=== PATIENT | male | born 1955 | race Caucasian/White ===

== ENCOUNTER 2019-02-19 19:26 | Inpatient (IN) | payer MEDICARE ==
--- NOTE | 2019-02-18 22:30 | NUR ---
PT ARRIVED ON UNIT VIA WHEELCHAIR, ESCORTED BY ER STAFF. UPON ARRIVAL PT BEGAN REQUESTING HIS ANTI REJECTION MEDS...STATES HE NEEDS THEM PROMPTLY AT 2230 AT NIGHT. PT BROUGHT HIS OWN MEDS FOR TONIGHTS, AND I APPROVED HIM TO TAKE NOW IT WOULD TAKE TIME TO GET ORDERS AND MEDS. HE WILL TALK TO MD IN AM ABOUT HOME MEDS.
[~2019-02-19] VITALS: Ht 170.2 cm; Wt 76.7 kg
--- NOTE | ~2019-02-19 | EC ---
PATIENT:KARSTEN KUHN DATE OF SERVICE: 02/19/19 SEX: M MEDICAL RECORD: [id number] DATE OF : [birth year] LOCATION:D.MS [address]222 AGE OF PATIENT: 64 ADMISSION DATE: 02/19/19 REFERRING PHYSICIAN: INTERPRETING PHYSICIAN: LILA MOSELEY MD ECHOCARDIOGRAM REPORT ECHO CHARGES 4 ECHO COMPLETE Date: 02/21/19 CLINICAL DIAGNOSIS: DYSPNEA HX LIVER TRANSPLANT ECHOCARDIOGRAPHIC MEASUREMENTS (adult normal given) AC root (d.<3.7cm) 3.7 cm LV Septum d (<1.2 cm> 1.7 cm Valve Excursion 2.0 cm LV Septum (systole) 1.8 cm Left Atria (s.<4.0cm> 3.2 cm LVPW d(<1.2cm) 1.7 cm RV (d.<2.3cm) 3.0 cm LVPW (sytole) 1.9 cm LV diastole(<5.6CM) 4.5 cm MV E-F(>70mm/sec) cm LV systole 3.3 cm LVOT Diameter 1.8 cm MV exc.(>10mm) cm Est.ejection fraction (50-75%) % DOPPLER: LVIT cm/sec A 89.0 cm/sec E 64.0 cm/sec LA cm/sec RVSP 17 mmHg LVOT 110 cm/sec AOP1/2T m/s Asc. Ao 132 cm/sec RVOT cm/sec RA cm/sec PA cm/sec AV Gradient Peak 6.95 mmHg AV Mean 3.70 mmHg AV Area 1.9 cm MV Gradient Peak 4.45 mmHg MV Mean 2.22 mmHg MV Area cm COMMENTS: Financial Planning Assistant: Genesis PATTERSON [employer] Sales Representative: 2 Dr. Parks TAPE# PACS Pericardial Effusion N DATE OF SERVICE: 02/21/2019 ECHOCARDIOGRAM FINDINGS: 1. Left ventricular chamber size is within normal limits. Left ventricular systolic function is normal. Overall ejection fraction estimated at 55% to 60%. 2. Left atrium, right atrium, and right ventricle chamber sizes are within normal limits. 3. Valvular structures have normal structure and motion. ECHOCARDIOGRAM REPORT [id number] KARSTEN KUHN 4. Doppler interrogation reveals no significant valvular insufficiency or stenosis and pulmonary systolic pressure is normal estimated at 17 mmHg. 5. No evidence of pericardial effusion or left ventricular thrombus. TRANSINT:[id number] Voice Confirmation ID: [id number] DOCUMENT ID: [id number] LILA MOSELEY MD CC: [id number] DICTATION DATE: 02/21/19 1249 CONSUMER LOAN PROCESSOR: 02/21/191948 DIS IN 02/21/19 [facility] [address] [id number]
[2019-02-19] MEDS ORDERED: PROGRAF0.5 M1 PO (19:37)
[2019-02-19] MEDS ORDERED: BP MEDS (19:37)
--- NOTE | 2019-02-19 19:54 | NUR ---
RT AT BEDSIDE.
[2019-02-19 20:00] VITALS: BP 158/97
[2019-02-19 20:07] LABS: BASOPHILS 0.5 % (0-2); EOSINOPHILS 1.2 % (0-7); HEMATOCRIT 48.6 % (42.0-54.0); HEMOGLOBIN 16.5 g/dL (13.5-17.5); IMMATURE GRANULOCYTES 0.2 % (0-5); LYMPHOCYTES 18.5 % (15-50); MCH 32.7 pg (26.0-34.0); MCV 96.2 fL (80.0-100.0); MEAN PLATELET VOLUME 9.3 fL (7.4-10.4); MONOCYTES 15.1 % (2-11); NEUTROPHILS 64.5 % (40-80); PLATELET COUNT 211 10x3/uL (130-400); RBC 5.05 10x6/uL (4.20-6.10); RDW 12.3 % (11.5-14.5); WBC 15.3 10x3/uL (4.8-10.8)
[2019-02-19 20:17] LABS: CALC OSMOLALITY 272 mosm/kg (275-300); CALCIUM 8.9 mg/dL (8.5-10.1); CARBON DIOXIDE 27.5 mmol/L (21.0-32.0); CHLORIDE - SERUM 99 mmol/L (98-107); CREATININE - SERUM 1.2 mg/dL (0.6-1.3); GLUCOSE 93 mg/dL (74-106); POTASSIUM - SERUM 3.9 mmol/L (3.5-5.1); SODIUM 135 mmol/L (136-145); UREA NITROGEN 20 mg/dL (7-18); eGFR NON AFRICAN AMERICAN 64 mL/min (90-120)
[2019-02-19 20:20] LABS: APTT 35.6 SECONDS (22.8-39.4); INR 1.19 (0.85-1.17); PROTIME 14.6 SECONDS (11.6-15.0)
[2019-02-19 20:33] LABS: ALBUMIN 3.8 g/dL (3.4-5.0); ALKALINE PHOSPHATASE 68 U/L (46-116); ALT (SGPT) 33 U/L (10-68); BILIRUBIN - TOTAL 0.71 mg/dL (0.2-1.3); CKMB 2.2 U/L (0.0-3.6); CREATINE KINASE 619 UL (21-232); PRO BNP 77 pg/mL (0-125); PROTEIN - SERUM 7.8 g/dL (6.4-8.2); TROPONIN-I < 0.017 ng/mL (0.000-0.060)
--- NOTE | 2019-02-19 20:45 | NUR ---
PT REPORTS DECREASE IN SOB AFTER RECEIVING UPDRAFT.
[2019-02-19 21:00] VITALS: BP 165/98
--- NOTE | 2019-02-19 21:33 | NUR ---
PT TAKEN TO CT
--- NOTE | 2019-02-19 21:44 | NUR ---
PT RETURNED TO ED VIA WC FROM CT.
[2019-02-19] MEDS ORDERED: COREG25 MG PO (22:12)
[2019-02-19] MEDS ORDERED: LEVOTHYROXINE50 MCG PO (22:13)
[2019-02-19] MEDS ORDERED: FLOMAX0.4 MG PO (22:13)
[2019-02-19] MEDS ORDERED: OMEPRAZOLE40 MG PO (22:14)
[2019-02-19] MEDS ORDERED: TRAZODONE HCL150 MG PO (22:14)
[2019-02-19] MEDS ORDERED: FLUTICASONE PRO16 GM NASAL (22:15)
--- NOTE | 2019-02-19 22:30 | NUR ---
PT ARRIVED ON UNIT VIA WHEELCHAIR, ESCORTED BY ER NURSE. PT STARTED REQUESTING HIS ANTI REJECTION MEDS UPON ARRIVAL....ONLY ORDER WAS FOR PROGRAF AND THAT HAS BEEN ORDERED. PT BROUGHT HIS OWN NIGHT TIME MEDS AND REQUESTED IF HE COULD JUST TAKE THOSE....AGREED TO LET HIM TAKE TONIGHT AND SPEAK TO MD IN AM.
[2019-02-19 22:34] VITALS: BP 155/126; BMI 25.6
--- NOTE | 2019-02-19 22:59 | NUR ---
PT REFUSED TELEMETRY...STATES THAT HE DOSN'T HAVE CARDIAC ISSUES AND HE DOSN'T NEED THE MONITOR. RETURNED TO MED 2
[2019-02-20] VITALS: BP 142/85
--- NOTE | 2019-02-20 01:14 | NUR ---
PAGED ANNAMARIE STEWART,ACCESS CONSULTANT TO REQUEST COUGH MED FOR PT. RECEIVED ORDER TO START TESSALON PEARLE 100 [address] PO AND [address] ORDER FOR PULMONARY CONSULT.
[2019-02-20 04:00] VITALS: BP 131/76
--- NOTE | 2019-02-20 07:00 | NUR ---
SITTING UP IN BED. HE IS WITHOUT DISTRESS.CALL LIGHT IN REACH
--- NOTE | 2019-02-20 08:00 | NUR ---
ASSESSMENT PER FLOW SHEET. PT IS WITHOUT DISTRESS.MONITOR FOR NEEDS
[2019-02-20 08:11] VITALS: BP 150/87
[2019-02-20] MEDS ORDERED: CALCIUM 250+D T1 TAB PO (11:39)
[2019-02-20] MEDS ORDERED: VITAMIN D31000 UNI2 PO (11:40)
[2019-02-20] MEDS ORDERED: FISH OIL 1,0001 CA1 PO (11:41)
[2019-02-20] MEDS ORDERED: MAG-OX 400 MG400 MG PO (11:41)
[2019-02-20 12:37] VITALS: BP 146/80
[2019-02-20 14:30] LABS: CKMB 2.4 U/L (0.0-3.6); CREATINE KINASE 535 UL (21-232); MAGNESIUM - SERUM 1.9 mg/dL (1.8-2.4)
[2019-02-20 14:31] LABS: TROPONIN-I < 0.017 ng/mL (0.000-0.060)
--- NOTE | 2019-02-20 14:37 | NUR ---
MONITOR ORDERED.PT REFUSED LAST NIGHT,BUT SAYS HE WILL WEAR IT TODAY. DAILY WEIGHT, SEE FLOW SHEET.
[2019-02-20 16:33] VITALS: BP 143/84
--- NOTE | 2019-02-20 18:51 | NUR ---
HAS DONE WELL TODAY. HE IS WITHOUT SHORTNESS OF BREATH AT PRESENT.IS AT BEDSIDE AND INSTRUCTED,2000ML RETURNED DEMONSTRATION.SCD'S IN PLACE.CONT PLAN OF CARE
--- NOTE | 2019-02-20 19:15 | NUR ---
PATIENT SITTING UP IN BED. IV TO L FA SL, NO REDNESS OR SWELLING. ROOM AIR. PATIENT STATES HE HAS NO NEEDS AT THIS TIME. TOLD PATIENT I WOULD BE BACK IN A FEW MINUTES TO CHECK ON HIM AND ASSESS. BED RAILS X2. CALLL LIGHT AND BEDSIDE TABLE WITHIN REACH.
[2019-02-20 19:59] LABS: CKMB 2.2 U/L (0.0-3.6); CREATINE KINASE 504 UL (21-232)
[2019-02-20 20:01] LABS: TROPONIN-I < 0.017 ng/mL (0.000-0.060)
[2019-02-20 20:35] VITALS: BP 147/88
[2019-02-21 01:20] VITALS: BP 150/77
[2019-02-21 02:46] LABS: CKMB 2.1 U/L (0.0-3.6); CREATINE KINASE 425 UL (21-232)
[2019-02-21 02:47] LABS: TROPONIN-I < 0.017 ng/mL (0.000-0.060)
[2019-02-21 05:22] LABS: BASOPHILS 0.1 % (0-2); EOSINOPHILS 0 % (0-7); HEMATOCRIT 44.5 % (42.0-54.0); HEMOGLOBIN 15.1 g/dL (13.5-17.5); IMMATURE GRANULOCYTES 0.3 % (0-5); LYMPHOCYTES 7.6 % (15-50); MCH 32.6 pg (26.0-34.0); MCHC 33.9 g/dL (31.0-37.0); MCV 96.1 fL (80.0-100.0); MEAN PLATELET VOLUME 9.5 fL (7.4-10.4); PLATELET COUNT 217 10x3/uL (130-400); RBC 4.63 10x6/uL (4.20-6.10); RDW 12.3 % (11.5-14.5); WBC 18.4 10x3/uL (4.8-10.8)
[2019-02-21 05:43] LABS: ALBUMIN 3.3 g/dL (3.4-5.0); ANION GAP 11.1 mmol/L (8-16); BILIRUBIN - TOTAL 0.42 mg/dL (0.2-1.3); CARBON DIOXIDE 27.7 mmol/L (21.0-32.0); CREATININE - SERUM 1.1 mg/dL (0.6-1.3); MAGNESIUM - SERUM 1.8 mg/dL (1.8-2.4); POTASSIUM - SERUM 3.8 mmol/L (3.5-5.1); PROTEIN - SERUM 6.8 g/dL (6.4-8.2)
[2019-02-21 08:01] VITALS: BP 143/90
[2019-02-21 08:25] VITALS: BP 145/97
[2019-02-21 13:13] VITALS: Ht 170.2 cm; Wt 76.7 kg
[2019-02-21 14:20] VITALS: BP 138/99
[2019-02-21] MEDS ORDERED: TESSALON PERLE100 MG PO (14:54)
[2019-02-21] MEDS ORDERED: PROTONIX40 MG PO (14:55)
[2019-02-21] MEDS ORDERED: FLORAJEN3 CAPS460 MG PO (14:55)
[2019-02-21] MEDS ORDERED: PULMICORT0.5 MG/21 UPD (14:55)
[2019-02-21] MEDS ORDERED: VIBRAMYCIN 100100 MG PO (14:56)
[2019-02-21] MEDS ORDERED: PREDNISONE10 MG PO (14:57)
--- NOTE | 2019-02-21 15:01 | MORECARE ---
CASE MANAGEMENT DISCHARGE SUMMARY PATIENT: KARSTEN KUHN UNIT: [id number] ADM DATE: 02/19/19 AGE: 64 : 53 SEX: M ROOM/BED: D.2223 AUTHOR: LEANDRO LAO PHYSICIAN: REFERRING PHYSICIAN: NILDA CHRISTENSEN MD DATE OF SERVICE: 02/21/19 Discharge Plan Patient Name: KARTSEN KUHN [facility] [facility] 1955 Planned Disposition: Home Anticipated Discharge Date: 02/21/19 Discharge Date: Expected LOS: 2 Initial Reviewer: [email or web address] Initial Review Date: 02/21/2019 Generated: 02/21/19 4:01 pm DCPIA - Discharge Planning Initial Assessment Updated by [email or web address]: Radha Bhardwaj on 02/21/19 2:57 pm * Is the patient Alert and Oriented? Yes * How many steps to enter\exit or inside your home? 2/0 * PCP Frandy Zapata in [place] * Pharmacy [facility] * Preadmission Environment Home Alone * ADLs Independent * Equipment None * List name and contact numbers for known caregivers / representatives who currently or will assist patient after discharge: Anabela Escalante [facility] [phone] * Verbal permission to speak to the caregivers and representatives has been obtained from the patient. Yes * Community resources currently utilized None * Additional services required to return to the preadmission environment? No * Can the patient safely return to the preadmission environment? Yes * Has this patient been hospitalized within the prior 30 days at any hospital? No Patient Name: KARSTEN KUHN Page [id number] at 1501 All edits/amendments must be made on the electronic document DICTATION DATE: 02/21/19 1501 HAND FABRIC CUTTER: RUPINDER 02/21/19 1501 RPT#: [id number] DC DATE: STATUS: ADM IN [facility] [address] [place] [address] END OF REPORT
--- NOTE | 2019-02-21 15:18 | MORECARE ---
CASE MANAGEMENT DISCHARGE SUMMARY PATIENT: KARSTEN KUHN UNIT: [id number] ADM DATE: 02/19/19 AGE: 64 : 53 SEX: M ROOM/BED: D.2223 AUTHOR: TASHIA,DOC PHYSICIAN: REFERRING PHYSICIAN: NILDA CHRISTENSEN MD DATE OF SERVICE: 02/21/19 Discharge Plan Patient Name: KARSTEN KUHN Facility: [facility]:[place] : 1955 Planned Disposition: Home Anticipated Discharge Date: 02/21/19 Discharge Date: Expected LOS: 2 Initial Reviewer: [email or web address] Initial Review Date: 02/21/2019 Generated: 02/21/19 4:18 pm Comments DCP- Discharge Planning Updated by [email or web address]: Radha Bhardwaj on 02/21/19 2:[address] Patient Name: KARSTEN KUHN Admission Status: ER Accout number: [id number] Admission Date: 02-19-2019 : 1955 Admission Diagnosis: Attending: NILDA CHRISTENSEN Current LOS: 2 Anticipated DC Date: 02-21-2019 Planned Disposition: Home Primary Insurance: [employer] ADV Discharge Planning Comments: CM met with patient to complete initial dc planning assessment. CM educated patient on the CM role and verbal consent given by patient to complete assessment. Patient lives at home alone. At discharge patient plans on returning home and feels this is a safe discharge. He states his sister will take him home. He is independent with all ADL's and IADL's. I discussed the availability of rehab, SNF, home health and DME needs. He denies needs at this time. His oxygen level on room air is 93% and 91% with exertion, therefore he does not qualify for home oxygen. CM will continue to follow and assist with discharge planning/needs. Political Science Research Assistant: Radha Bhardwaj DCPIA - Discharge Planning Initial Assessment Updated by [email or web address]: Radha Bhardwaj on 02/21/19 2:57 pm * Is the patient Alert and Oriented? Yes * How many steps to enter\exit or inside your home? 2/0 * PCP Frandy Zapata in [place] * Pharmacy [facility] on [address] * Preadmission Environment Home Alone * ADLs Independent * Equipment None * List name and contact numbers for known caregivers / representatives who currently or will assist patient after discharge: Anabela Escalante - [facility] [phone] * Verbal permission to speak to the caregivers and representatives has been obtained from the patient. Yes * Community resources currently utilized None * Additional services required to return to the preadmission environment? No * Can the patient safely return to the preadmission environment? Yes * Has this patient been hospitalized within the prior 30 days at any hospital? No Last DP export: 02/21/19 2:01 Patient Name: KARSTEN KUHN Page 93168 at 1518 All edits/amendments must be made on the electronic document DICTATION DATE: 02/21/191517 COPYMAN: RUPINDER 02/21/191517 RPT#: [id number] DC DATE: STATUS: ADM IN [facility] [address] [place] [address] END OF REPORT
--- NOTE | 2019-02-21 16:00 | NUR ---
PATIENT RECIEVED DC INSTRUCTIONS. VERBALIZED UNDERSTANDING. NO QUESTIONS AT THIS TIME. IV INTACT. CALL LIGHT WITHIN REACH. AWAITING FAMILY FOR DISCHARGE TRANSPORTATION.
--- NOTE | 2019-02-22 11:34 | MORECARE ---
CASE MANAGEMENT DISCHARGE SUMMARY PATIENT: KARSTEN KUHN UNIT: [id number] ADM DATE: 02/19/19 AGE: 64 : 53 SEX: M ROOM/BED: D.2223 AUTHOR: TASHIADOC PHYSICIAN: REFERRING PHYSICIAN: NILDA CHRISTENSEN MD DATE OF SERVICE: 02/22/19 Discharge Plan Patient Name: KARSTEN KUHN Facility: [facility]:[place] : 1955 Planned Disposition: Home Anticipated Discharge Date: 02/21/19 Discharge Date: 02/21/2019 Expected LOS: 2 Initial Reviewer: [email or web address] Initial Review Date: 02/21/2019 Generated: 02/22/19 12:34 pm Comments DCP- Discharge Planning Updated by [id number]: Radha Bhardwaj on 02/21/19 2:[address] Patient Name: KARSTEN KUHN Admission Status: ER Accout number: [id number] Admission Date: 02-19-2019 : 1955 Admission Diagnosis: Attending: NILDA CHRISTENSEN Current LOS: 2 Anticipated DC Date: 02-21-2019 Planned Disposition: Home Primary Insurance: [employer]ICARE ADV Discharge Planning Comments: CM met with patient to complete initial dc planning assessment. CM educated patient on the CM role and verbal consent given by patient to complete assessment. Patient lives at home alone. At discharge patient plans on returning home and feels this is a safe discharge. He states his sister will take him home. He is independent with all ADL's and IADL's. I discussed the availability of rehab, SNF, home health and DME needs. He denies needs at this time. His oxygen level on room air is 93% and 91% with exertion, therefore he does not qualify for home oxygen. CM will continue to follow and assist with discharge planning/needs. Welder/Fabricator: Radha Bhardwaj DCPIA - Discharge Planning Initial Assessment Updated by [email or web address]: Radha Bhardwaj on 02/21/19 2:57 pm * Is the patient Alert and Oriented? Yes * How many steps to enter\exit or inside your home? 2/0 * PCP Frandy Zapata in [place] * Pharmacy [facility] on [address] * Preadmission Environment Home Alone * ADLs Independent * Equipment None * List name and contact numbers for known caregivers / representatives who currently or will assist patient after discharge: Anabela Escalante - [facility] - [phone] * Verbal permission to speak to the caregivers and representatives has been obtained from the patient. Yes * Community resources currently utilized None * Additional services required to return to the preadmission environment? No * Can the patient safely return to the preadmission environment? Yes * Has this patient been hospitalized within the prior 30 days at any hospital? No Last DP export: 02/21/19 2:19 Patient Name: KARSTEN KUHN Page 34610 at 1134 All edits/amendments must be made on the electronic document DICTATION DATE: 02/22/191133 SENIOR CONSTRUCTION PROJECT MANAGER: RUPINDER 02/22/191133 RPT#: [id number] DC DATE:02/21/19 STATUS: DIS IN [facility] [address] [place] [address] END OF REPORT
--- NOTE | 2019-02-22 12:57 | MORECARE ---
CASE MANAGEMENT DISCHARGE SUMMARY PATIENT: KARSTEN KUHN UNIT: [id number] ADM DATE: 02/19/19 AGE: 64 : 53 SEX: M ROOM/BED: D.2223 AUTHOR: TASHIADOC PHYSICIAN: REFERRING PHYSICIAN: NILDA CHRISTENSEN MD DATE OF SERVICE: 02/22/19 Discharge Plan Patient Name: KARSTEN KUHN Facility: [facility]:[place] : 1955 Planned Disposition: Home Anticipated Discharge Date: 02/21/19 Discharge Date: 02/21/2019 Expected LOS: 2 Initial Reviewer: [email or web address] Initial Review Date: 02/21/2019 Generated: 02/22/19 1:56 pm Comments DCP- Discharge Planning Updated by [email or web address]: Rylee Gannon on 02/22/19 11:[address] RECEIVED A CALL FROM DR ROBERTSON ABOUT THE PATIENT NEEDS A NEBULIZER, I CALLED THE PATIENT AT HOME AND HE DID NOT HAVE A PREFERENCE ON WHAT DME COMPANY WE USED, LONG THEY TAKE HIS INSURANCE I CALLED [facility] SPOKE WITH [facility] AND THEY WILL HAVE A NEBULIZER DELIVERED TO HIS HOME. I CALLED THE PATIENT TO LET HIM KNOW. PATIENT NUMBER IS [phone] DCP- Discharge Planning Updated by [id number]: Radha Bhardwaj on 02/21/19 2:[address] Patient Name: KARSTEN KUHN Admission Status: ER Accout number: [id number] Admission Date: 02-19-2019 : 1955 Admission Diagnosis: Attending: NILDA CHRISTENSEN Current LOS: 2 Anticipated DC Date: 02-21-2019 Planned Disposition: Home Primary Insurance: WE[employer] ADV Discharge Planning Comments: CM met with patient to complete initial dc planning assessment. CM educated patient on the CM role and verbal consent given by patient to complete assessment. Patient lives at home alone. At discharge patient plans on returning home and feels this is a safe discharge. He states his sister will take him home. He is independent with all ADL's and IADL's. I discussed the availability of rehab, SNF, home health and DME needs. He denies needs at this time. His oxygen level on room air is 93% and 91% with exertion, therefore he does not qualify for home oxygen. CM will continue to follow and assist with discharge planning/needs. Piano Accompanist: Radha Bhardwaj DCPIA - Discharge Planning Initial Assessment Updated by [email or web address]: Radha Bhardwaj on 02/21/19 2:57 pm * Is the patient Alert and Oriented? Yes * How many steps to enter\exit or inside your home? 2/0 * PCP Frandy Zapata in [place] * Pharmacy [facility] on [address] * Preadmission Environment Home Alone * ADLs Independent * Equipment None * List name and contact numbers for known caregivers / representatives who currently or will assist patient after discharge: Anabela Escalante [facility] [phone] * Verbal permission to speak to the caregivers and representatives has been obtained from the patient. Yes * Community resources currently utilized None * Additional services required to return to the preadmission environment? No * Can the patient safely return to the preadmission environment? Yes * Has this patient been hospitalized within the prior 30 days at any hospital? No External Providers External Provider: Ivone Next Contact Date: Service Request Date: Service Type: Resolution: Reviewer: Comments: Last DP export: 02/22/19 10:34 Patient Name: KARSTEN KUHN Page 38380 at 1257 All edits/amendments must be made on the electronic document DICTATION DATE: 02/22/191255 APPLICATION SUPPORT ANALYST: RUPINDER 02/22/19 1256 RPT#: [id number] DC DATE:02/21/19 STATUS: DIS IN [facility] [address] [place] [address] END OF REPORT
--- NOTE | 2019-02-28 10:02 | CN ---
PATIENT NAME:KARSTEN EDWARDS MEDICAL RECORD: [id number] : [birth year] LOCATION:D.MS [address]2223 ADMIT DATE: 02/19/19 ACCOUNT: [id number] CONSULTING PHYSICIAN: MARK VANEGAS MD REFERRING PHYSICIAN: EDILBERTO KEARNS MD DATE OF CONSULTATION: 02/20/2019 CONSULT REQUESTING PHYSICIAN: Edilberto Kearns MD REASON FOR CONSULTATION: Acute exacerbation of chronic obstructive pulmonary disease. HISTORY OF PRESENT ILLNESS: Mr. Edwards is a 64-year-old gentleman who has a history of COPD, hepatitis C, status post liver transplant. He is not on home oxygen. The patient said he has cold-like symptom a few days ago. There is no coughing. He was wheezing. The patient has worsening shortness of breath, came into the ER. The D-dimer was mildly positive, but the CTA was negative for any pulmonary embolism. There was no infiltrate. REVIEW OF SYSTEMS: As in history of present illness. PAST MEDICAL HISTORY: 1. Hepatitis C. 2. Hypertension. 3. Chronic obstructive pulmonary disease. 4. History of basal cell carcinoma of the skin. PAST SURGICAL HISTORY: 1. He is status post liver transplant. 2. Herniorrhaphy. 3. Ganglionectomy. ALLERGIES: HE IS ALLERGIC TO PENICILLIN, MIDAZOLAM, AND MEPERIDINE. MEDICATIONS: [employer] is reviewed. PERSONAL AND SOCIAL HISTORY: The patient is an ex-smoker who quitted 1994. FAMILY HISTORY: Significant for COPD, emphysema in his father and grandfather. They were smoker. PHYSICAL EXAMINATION: GENERAL: The patient is lying comfortably. He is not in acute distress. VITAL SIGNS: The blood pressure is 146/80, pulse is 80, respiration 18, temperature 98.2, SPO2 is 2 liters nasal cannula. HEENT: Conjunctivae are pink. Sclerae are not icteric. NECK: Supple, no JVD. CHEST: The chest excursion is minimal on both sides. There are wheeze on forceful expiration. HEART: Rhythm regular, normal sound, no murmur. ABDOMEN: Soft, bowel sounds present. No hepatosplenomegaly. RECTAL: Deferred. EXTREMITIES: No cyanosis, no clubbing, no pedal edema. CENTRAL NERVOUS SYSTEM: The patient is awake and alert. There is no obvious cranial nerve abnormality. The gait was not tested. CONSULT REPORT [id number] KARSTEN EDWARDS IMAGING: CTA of the chest, there are no pulmonary embolism, no infiltrate. LABORATORY DATA: ABG: The pH was 7.40, pCO2 was 38.8, pO2 was 73, bicarbonate of 24.9. CBC: WBC 15.3, hemoglobin 16.5, hematocrit 48.6, and platelet count 211. IMPRESSION: 1. Acute exacerbation of chronic obstructive pulmonary disease. 2. Acute hypoxic respiratory failure with pO2 of 73. 3. Tracheobronchitis. 4. Ex-smoker. 5. Leukocytosis with WBC count 15,000. 6. History of basal cell carcinoma of the skin. 7. History of hepatitis C, status post liver transplant. RECOMMENDATION: 1. Adjust the dose of methylprednisolone IV. 2. Continue supplemental oxygen to keep the SpO2 above 90%. 3. Albuterol/ipratropium nebulizer. 4. Brovana, budesonide nebulizer. 5. Start her on doxycycline empirically. 6. Check the alpha-1 phenotype. 7. Follow up labs. Dr. Kearns, thank you for involving me in the care of Mr. Edwards. TRANSINT:[id number] Voice Confirmation ID: [id number] DOCUMENT ID: [id number] MARK VANEGAS MD at 1002 CC: [id number] DICTATION DATE: 02/20/19 1606 BACK UP MACHINE OPERATOR: 02/20/19 1830 DIS IN 02/21/19 [id number] [place] [address]
== END 2019-02-21 17:27 | disposition home or self-care (01) | DRG 189 ==
LOC: D.ER 19:26 → D.MS 21:28
PROVIDERS: Emergency Medicine; ADMIT Internal Medicine Nephrology; ATTEND Internal Medicine Nephrology
DX: J96.01 Acute respiratory failure with hypoxia (principal); E87.1 Hypo-osmolality and hyponatremia; Z94.4 Liver transplant status; J43.9 Emphysema, unspecified; I10 Essential (primary) hypertension; D72.829 Elevated white blood cell count, unspecified; J20.9 Acute bronchitis, unspecified